=== PATIENT | male | born 1990 | race Hispanic/Latino ===

== ENCOUNTER 2018-12-14 12:18 | Emergency (ER) | payer SELFPAY | END 2018-12-14 13:22 | disposition left against medical advice (07) | LOC: ERS 12:18 | DX: Z53.21 Procedure and treatment not carried out due to patient leaving prior to being seen by health care provider (principal) ==

== ENCOUNTER 2019-04-28 09:06 | Day surgery (SDC) | payer SELFPAY ==
[2019-04-28] MEDS ORDERED: Sodium Chloride 0.9% 100 ML ONE (10:24)
[2019-04-28] MEDS ORDERED: Piperacillin/Tazobactam 3.375 GM VIAL ONE (10:24)
[2019-04-28] MEDS ORDERED: Fentanyl 100 MCG/2 ML VIAL ONE ×2 (10:40→13:06)
--- NOTE | 2019-04-28 12:27 | HP ---
CHIEF COMPLAINT: Abdominal pain. HISTORY OF PRESENT ILLNESS: The patient is a 28-year-old male, with a 24-hour history of mid abdominal pain associated with nausea and vomiting. It is now in right lower quadrant. CT scan shows appendicitis. PAST MEDICAL HISTORY: Otherwise, healthy. PAST SURGICAL HISTORY: He had removal of a coin from his esophagus. MEDICATIONS: No medications. ALLERGIES: NO KNOWN DRUG ALLERGIES. SOCIAL HISTORY: He is a student. He is single. He works at a [employer] as well. No tobacco. No alcohol. FAMILY HISTORY: Diabetes and cardiac disease. PHYSICAL EXAMINATION: VITAL SIGNS: Blood pressure 119/55, pulse 62, and temperature 98.7. GENERAL: Well-developed, well-nourished male, in minimal distress. HEENT: Unremarkable. LUNGS: Clear. HEART: Regular rate and rhythm. ABDOMEN: Soft and nondistended. He is very tender in the right lower quadrant. EXTREMITIES: Unremarkable. LABORATORY DATA: His white count is 19,000. ASSESSMENT: Acute appendicitis. PLAN: Laparoscopic appendectomy. CONSENT: I have discussed planned procedure as well as risk of bleeding, infection, injury to bowel, bladder, need to open, he understands and gives informed consent. Job ID: [id number]
[2019-04-28] MEDS ORDERED: Lidocaine 2% Jelly 5 ML TUBE ONE (13:07)
[2019-04-28] MEDS ORDERED: Bupivacaine/Epinephrine 0.25% 30 ML VIAL ONE (13:17)
[2019-04-28] MEDS ORDERED: SUGAMMADEX SODIUM 200 MG/2 ML VIAL ONE (14:27)
[2019-04-28] MEDS ORDERED: HYDROcodone/Acetaminophen 5/325 mg Tablet ONE (17:02)
--- NOTE | 2019-04-29 09:20 | OP ---
DATE OF PROCEDURE: 04/28/2019 PREOPERATIVE DIAGNOSIS: Acute appendicitis. PROCEDURE PERFORMED: Laparoscopic appendectomy. INDICATIONS: A 28-year-old male with a 24-hour history of mid epigastric pain, which became more right lower quadrant. CT showed appendicitis. FINDINGS: Acute suppurative nonperforated appendicitis. DESCRIPTION OF PROCEDURE: After informed consent was obtained, the patient was taken to the operating room, given general endotracheal anesthesia, and placed in supine position. Abdomen was prepped and draped in usual fashion. Local anesthesia infiltrated subcutaneously and deep. A subumbilical incision was performed. Subcu divided sharply. The fascia was grasped with 2 stay sutures of 0 Vicryl placed through side of midline. Midline incised. Digital palpation revealed no local adhesions. A blunt 12 mm trocar inserted. Pneumoperitoneum was created to a pressure of 15 mmHg. A 0 degree laparoscope inserted under direct vision. Two 5-mm ports were placed, one suprapubic and one right lateral abdomen. The appendix was grasped. The mesoappendix was divided with LigaSure. The base of the appendix was divided with the linear 45 mm stapler. The appendix was placed in endosac, removed from the abdomen in the endosac. Hemostasis was assured. The abdomen irrigated. Irrigation fluid removed. Trocars and retractors removed. The fascia closed with interrupted 0 Vicryl suture. Skin was closed with interrupted 4-0 Rapide. Dermabond applied. The patient tolerated the procedure well, transferred to Recovery in good condition. Sponge and needle count verified correct x2. Job ID: [id number]
== END 2019-04-28 17:25 | disposition home or self-care (01) ==
LOC: SDC 09:06
PROVIDERS: ATTEND Surgery
PROC: 0DTJ4ZZ Resection of Appendix, Percutaneous Endoscopic Approach (ICD-10-PCS; principal; 2019-04-28)
DX: K35.30 Acute appendicitis with localized peritonitis, without perforation or gangrene (principal)
CPT/HCPCS: 88304; J2543; J3010; J3490

== ENCOUNTER 2019-09-01 09:56 | Emergency (ER) | payer SELFPAY ==
--- NOTE | 2019-09-04 15:49 | EKG ---
Test Reason : Blood Pressure : / mmHG Vent. Rate : 066 BPM Atrial Rate : 066 BPM P-R Int : 164 ms QRS Dur : 094 ms QT Int : 384 ms P-R-T Axes : 056 032 025 degrees QTc Int : 402 ms Normal sinus rhythm with sinus arrhythmia Normal ECG Confirmed by SID FLOREZ, JUAN C ([id number]), industrial editor HENRY WINSLOW ([id number]) on 09/04/2019 3:48:59 PM Referred By: Confirmed By:JUAN C LAU MD
== END 2019-09-01 10:23 | disposition home or self-care (01) ==
LOC: ERS 09:56
DX: R55 Syncope and collapse (principal); F41.0 Panic disorder [episodic paroxysmal anxiety]
CPT/HCPCS: 93005